=== PATIENT | female | born 1995 | race African-American/Black ===

== ENCOUNTER 2022-08-05 10:28 | Emergency (ER) | payer SELFPAY ==
[~2022-08-05] VITALS: Ht 182.9 cm; Wt 118.0 kg
[2022-08-05 10:50] VITALS: BP 147/88
[2022-08-05] MEDS ORDERED: ACCU-CHEK COMFORT CURVE STRIP VI ONE (11:15)
== END 2022-08-05 11:35 | disposition left against medical advice (07) ==
LOC: EDBD 10:28 → ER 10:28
DX: R55 Syncope and collapse (principal)